=== PATIENT | male | born 1990 | race Caucasian/White ===

== ENCOUNTER 2017-09-15 11:13 | Emergency (ER) | payer OTHER ==
[~2017-09-15] VITALS: Ht 157.5 cm; Wt 54.4 kg
[2017-09-15 11:29] VITALS: BP_SYST 118
[2017-09-15] MEDS ORDERED: NACL 0.9% 1,000 ML IV ONE (11:45)
[2017-09-15] MEDS ORDERED: DIPHENHYDRAMINE INJ 50 MG/ML VIAL IVP ONE (11:45)
[2017-09-15] MEDS ORDERED: ONDANSETRON HCL 4 MG/2 ML VIAL IVP ONE (11:45)
[2017-09-15] MEDS ORDERED: KETOROLAC TROMETHAMINE 30 MG VIAL IVP ONE (11:45)
[2017-09-15 11:59] LABS: BILIRUBIN,URINE NEGATIVE (NEGATIVE); BLOOD, URINE NEGATIVE (NEGATIVE); CLARITY/URINE CLEAR (CLEAR); COLOR,URINE YELLOW (YELLOW); GLUCOSE,URINE NEGATIVE (NEGATIVE); KETONES,URINE NEGATIVE (NEGATIVE); LEUKOCYTE ESTERASE ,URINE NEGATIVE (NEGATIVE); NITRITE, URINE NEGATIVE (NEGATIVE); PH,URINE 5.5 (5.0-8.0); PROTEIN URINE NEGATIVE (NEGATIVE); UROBILINOGEN,URINE 0.2 (0.2-1.0)
[2017-09-15 12:08] LABS: BASOPHILS % (AUTO) 0.6 % (0.0-2.0); EOSINOPHILS % (AUTO) 0.4 % (0.0-4.0); HEMATOCRIT 39.2 % (36-54); HEMOGLOBIN 12.4 g/dL (14.0-18.0); LYMPHOCYTES # (AUTO) 1.5 K/uL (1.0-5.5); LYMPHOCYTES % (AUTO) 27.7 % (20.5-51.5); MEAN CORPUSCULAR HEMOGLOBIN 28 pg (27-31); MEAN CORPUSCULAR HGB CONC 32 % (32-36); MEAN CORPUSCULAR VOLUME 87 fL (79.0-98.0); MONOCYTES # (AUTO) 0.5 K/uL (0.0-1.0); MONOCYTES % (AUTO) 9.4 % (1.7-9.3); NEUTROPHILS # (AUTO) 3.6 K/uL (1.8-7.7); NEUTROPHILS % (AUTO) 61.9 % (40.0-70.0); PLATELET COUNT (AUTO) 268 K/uL (130-430); RED BLOOD CELL COUNT(AUTO) 4.51 MIL/uL (4.2-6.2); RED CELL DISTRIBUTION WIDTH 12.7 % (9.0-15.0); WHITE BLOOD COUNT (AUTO) 5.6 K/uL (4.8-10.8)
[2017-09-15 12:24] LABS: CALCIUM 9.4 mg/dL (8.4-11.0); CREATININE 0.86 mg/dL (0.55-1.30); POTASSIUM 3.7 mmol/L (3.5-5.1)
[2017-09-15 12:26] LABS: ALBUMIN 4.1 g/dL (3.4-4.8); PROTHROMBIN TIME 10.1 SECS (9.5-12.5); TOTAL BILIRUBIN 0.4 mg/dL (0.0-1.0)
[2017-09-15 15:00] VITALS: BP_SYST 122
== END 2017-09-15 15:00 | disposition home or self-care (01) ==
LOC: SED 11:13
DX: S39.92XA Unspecified injury of lower back, initial encounter (principal); Z88.5 Allergy status to narcotic agent; Z86.79 Personal history of other diseases of the circulatory system; W55.12XA Struck by horse, initial encounter; Y93.89 Activity, other specified; Y92.89 Other specified places as the place of occurrence of the external cause; Y99.8 Other external cause status
CPT/HCPCS: 36415; 72128; 72131; 80053; 81003; 82150; 83690; 85025; 85610; 85730; 96361; 96374; 96375; 99285; J1200; J1885; J2405; J7030

== ENCOUNTER 2017-11-04 11:03 | Emergency (ER) | payer OTHER ==
[~2017-11-04] VITALS: Ht 157.5 cm; Wt 56.7 kg
[2017-11-04 11:08] VITALS: BP_SYST 138
--- NOTE | 2017-11-04 11:13 | NUR ---
Pt to bed 8
--- NOTE | 2017-11-04 11:18 | NUR ---
Pt complains of pain inbetween shoulder blades on back for the past 2 weeks, pt states pain has been increasing to a 7/10. Pt states has nausea but denies vomiting, or SOB. Pt is able to ambulate but states is unable to bear weight in arms. Pt states was run over by a horse 09/13/17 and broke L3,4,5 and S1 is in a back brace but states regis CANTU did nothing else and does not have another appointment until next month. No other injuries/complaints per pt or noted.
--- NOTE | 2017-11-04 11:21 | NUR ---
ER at bedside examining patient.
[2017-11-04] MEDS ORDERED: traMADol HCL HCL 50 MG TABLET (ULTRAM) PO ONE (11:30)
--- NOTE | 2017-11-04 11:39 | NUR ---
Medicated for pain per MD orders.
--- NOTE | 2017-11-04 11:45 | NUR ---
No adverse reaction to medication. Pt filllinig out MRI paperwork
--- NOTE | 2017-11-04 11:47 | NUR ---
Sandra camacho in [facility] - 11/04/17 at 1153 by [facility] Off unit for MRI via wheelchair
--- NOTE | 2017-11-04 12:50 | NUR ---
Pt went to MRI in stable condition
--- NOTE | 2017-11-04 13:13 | NUR ---
Pt returned from MRI.
[2017-11-04] MEDS ORDERED: MAGNESIUM CITRATE 300 ML ORAL SOLUTION PO ONE (14:00)
--- NOTE | 2017-11-04 14:18 | NUR ---
Medication was given to pt, tolerated well
[2017-11-04 14:21] VITALS: BP_SYST 130
--- NOTE | 2017-11-04 14:21 | NUR ---
Patient given written and verbal discharge instructions and verbalizes understanding. ER MD discussed with patient the results and treatment provided. Patient in stable condition. ID arm band removed. Rx of ultram given. Patient educated on pain management and to follow up with PMD. Pain Scale 2. Opportunity for questions provided and answered.
== END 2017-11-04 14:21 | disposition home or self-care (01) ==
LOC: SED 11:03
DX: M54.2 Cervicalgia (principal); K59.00 Constipation, unspecified; R03.0 Elevated blood-pressure reading, without diagnosis of hypertension; Z88.5 Allergy status to narcotic agent
CPT/HCPCS: 72146; 74018; 99284